=== PATIENT | female | born 1975 | race Caucasian/White ===

== ENCOUNTER 2024-04-19 12:02 | Emergency (ER) | payer OTHER ==
[~2024-04-19] VITALS: Ht 162.6 cm; Wt 68.0 kg
[2024-04-19 12:08] VITALS: TEMP 98.3
[2024-04-19] MEDS: SODIUM CHLORIDE 0.9% 1,000 ML IV ONE (13:08)
[2024-04-19] MEDS: ONDANSETRON HCL 4 MG/2 ML VIAL IVP ONE (13:08)
[2024-04-19 13:19] LABS: BASOPHILS % (AUTO) 0.8 % (0.0-2.0); EOSINOPHILS % (AUTO) 0.7 % (1.0-6.0); HEMATOCRIT 41.8 % (36-46); HEMOGLOBIN 13.8 g/dL (12.0-16.0); LYMPHOCYTES # (AUTO) 2.2 K/uL (1.0-4.8); LYMPHOCYTES % (AUTO) 26.6 % (22.0-44.0); MEAN CORPUSCULAR HEMOGLOBIN 29.3 pg (26.0-34.0); MEAN CORPUSCULAR HGB CONC 32.9 G/dL (31.0-37.0); MEAN CORPUSCULAR VOLUME 89 fL (80-100); MONOCYTES # (AUTO) 0.5 K/uL (0.1-1.0); MONOCYTES % (AUTO) 6.1 % (2.0-9.0); NEUTROPHILS # (AUTO) 5.4 K/uL (1.8-7.7); NEUTROPHILS % (AUTO) 65.8 % (40.0-70.0); PLATELET COUNT (AUTO) 238 K/uL (150-450); RED BLOOD CELL COUNT(AUTO) 4.69 MIL/uL (4.00-5.20); RED CELL DISTRIBUTION WIDTH 13.9 % (11.5-14.5); WHITE BLOOD COUNT (AUTO) 8.2 K/uL (4.5-11.0)
[2024-04-19 13:32] LABS: ANION GAP 5 mmol/L (8-16); CALCIUM, TOTAL 9.2 mg/dL (8.8-10.5); CARBON DIOXIDE 31 mmol/L (22-29); CHLORIDE 100 mmol/L (98-107); CREATININE 0.59 mg/dL (0.60-1.30); GLOMERULAR FILTR. RATE CALC > 60 mL/min (>60); GLUCOSE,RANDOM 91 mg/dL (70-110); POTASSIUM 3.6 mmol/L (3.5-5.1); SODIUM SERUM 136 mmol/L (136-145); UREA NITROGEN, BLOOD 11 mg/dL (7-18)
[2024-04-19 13:40] LABS: ALBUMIN 3.3 g/dL (3.4-5.0); ALKALINE PHOSPHATASE 65 U/L (46-116); ASPARTATE AMINOTRANSFERASE 25 U/L (15-37); BILIRUBIN,TOTAL 1.2 mg/dL (0.1-1.0); LIPASE 37 U/L (16-77); TOTAL PROTEIN, SERUM 7.1 g/dL (6.4-8.2)
[2024-04-19 13:57] LABS: ALANINE AMINOTRANSFERASE 27 U/L (12-78)
[2024-04-19] MEDS: PB/HYOSCY/ATR/SCOP/LIDO/MAALOX 55 ML BOTTLE PO ONE (14:00)
[2024-04-19 14:24] LABS: HCG,QUANTITATIVE < 1 mIU/mL (0-6)
[2024-04-19] MEDS ORDERED: PANT-31 PO (14:40)
[2024-04-19 15:00] VITALS: BP 128/77; PULSE 80; RESP 20; O2SAT 100
== END 2024-04-19 15:45 | disposition home or self-care (01) ==
LOC: EMS 12:02
DX: R10.13 Epigastric pain (principal); Z90.49 Acquired absence of other specified parts of digestive tract; Z88.5 Allergy status to narcotic agent
CPT/HCPCS: 99283; 96374; 96361; 80053; 83690; 84702; 85025; 36415; J2405; J7030

== ENCOUNTER 2024-04-26 14:05 | Emergency (ER) | payer OTHER ==
[~2024-04-26] VITALS: Ht 162.6 cm; Wt 65.9 kg
[~2024-04-26 14:05] MED LIST: PANT-31 PO
[2024-04-26 14:08] VITALS: BP 120/77; PULSE 72; RESP 18; TEMP 97.8; O2SAT 98
[2024-04-26 14:17] LABS: COVID AG,FIA SOURCE NASAL SWAB
[2024-04-26 14:44] LABS: SARS-COV2 (COVID) ANTIGEN,FIA Negative (Negative)
[2024-04-26 14:45] LABS: INFLUENZA TYPE A NEGATIVE FOR TYPE A (NEGATIVE); INFLUENZA TYPE B POSITIVE FOR TYPE B (NEGATIVE)
[2024-04-26] MEDS ORDERED: OSEL75CA45 PO (15:39)
[2024-04-26] MEDS ORDERED: IBUP-1492 PO (15:39)
== END 2024-04-26 16:48 | disposition home or self-care (01) ==
LOC: EMS 14:05
DX: J10.1 Influenza due to other identified influenza virus with other respiratory manifestations (principal); Z90.49 Acquired absence of other specified parts of digestive tract; Z79.899 Other long term (current) drug therapy; Z88.5 Allergy status to narcotic agent; Z20.822 Contact with and (suspected) exposure to COVID-19
CPT/HCPCS: 87804; 99283